=== PATIENT | male | born 1975 | race Caucasian/White ===

== ENCOUNTER 2016-09-10 04:17 | Emergency (ER) | payer MEDICAID ==
[2016-09-10 04:18] VITALS: BMI 29.8
[2016-09-10 04:29] VITALS: BP 128/92; PULSE 98; RESP 18; TEMP 98; O2SAT 97
--- NOTE | 2016-09-10 04:50 | C.PDOC ---
History Of Present Illness 40 y/o healthy male c/o constant cough with whitish sputum x 3 days, temp to 103 yesterday, c/o bilateral ear pain, headache, nasal congestion,sore throat, upper back pain and myalgias x 3 days. no sick contacts. no n/v/d. no flu vaccine this year. Time Seen by Provider: 09/10/16 04:33 Chief Complaint (Nursing): Cough, Cold, Congestion History Per: Patient, Family History/Exam Limitations: no limitations Onset/Duration Of Symptoms: Days (3) Current Symptoms Are (Timing): Better Location Of Pain: Ear(s), Throat, Sinus/es, Diffuse Myalgias, Headache Sick Contacts (Context): None Associated Symptoms: Fever, Chills, Sore Throat, Cough, Sputum, Myalgias, Nasal Congestion. denies: Vomiting, Diarrhea, Other Ear Symptoms: Bilateral: Ear Pain, Ear Fullness Severity: Mild Recent travel outside of the [place]: No Additional History Per: Patient Past Medical History Reviewed: Historical Data, Nursing Documentation, Vital Signs Vital Signs: Last Vital Signs Temp 98.0 F 09/10/16 04:26 Pulse 98 H 09/10/16 04:26 Resp 18 09/10/16 04:26 BP 128/92 H 09/10/16 04:26 Pulse Ox 97 09/10/16 04:57 - Medical History PMH: No Chronic Diseases Surgical History: No Surg Hx Other Surgeries: abscess - [facility] Procedures ATTACH PEDICLE GRAFT NEC (08/30/13) INCIS PERIANAL ABSCESS (01/05/13) LEG VARICOS V LIGA-STRIP (08/30/13) OTHER SKIN & SUBQ I D (09/20/13) PERIRECTAL INCISION (01/05/13) Family History: States: Unknown Family Hx - Social History Hx Tobacco Use: Yes (weekends only) Hx Alcohol Use: Yes (weekends only) Hx Substance Use: No - Immunization History Hx Tetanus Toxoid Vaccination: No Hx Influenza Vaccination: No Hx Pneumococcal Vaccination: No Review Of Systems Constitutional: Positive for: Fever, Chills, Weakness, Malaise Eyes: Negative for: Pain, Vision Change ENT: Positive for: Ear Pain, Nose Discharge, Nose Congestion, Throat Pain. Negative for: Ear Discharge, Nose Pain, Mouth Pain Respiratory: Positive for: Cough, Pleuritic Pain, Sputum Gastrointestinal: Negative for: Nausea, Vomiting, Abdominal Pain, Diarrhea Skin: Negative for: Rash Physical Exam - Physical Exam Appears: Non-toxic, No Acute Distress, Other (uncomfortable) Skin: Normal Color, Warm, Dry Head: Atraumatic Eye(s): bilateral: Normal Inspection Ear(s): Bilateral: Normal Nose: Discharge Oral Mucosa: Moist Throat: Erythema (mild), No Exudate, No Drooling, No Other Neck: Normal ROM, No Midline Cervical Tenderness, No Step Off Deformity Lymphatic: No Adenopathy Chest: Symmetrical, No Deformity, No Tenderness Cardiovascular: Rhythm Regular, No Murmur Respiratory: Normal Breath Sounds, No Accessory Muscle Use, No Rales, No Rhonchi , No Wheezing Gastrointestinal/Abdominal: Soft, No Tenderness, No Distention, No Guarding, No Rebound Extremity: No Pedal Edema, No Calf Tenderness, No Swelling Neurological/Psych: Oriented x3, Normal Speech, Normal Motor, Normal Sensation ED Course And Treatment O2 Sat by Pulse Oximetry: 97 Medical Decision Making Medical Decision Makin40 y/o male with infulenza like symptomd.s supportive care. Disposition Counseled Patient/Family Regarding: Diagnosis, Need For Followup - Disposition Disposition: HOME/ ROUTINE Disposition Time: 05:06 Condition: STABLE Additional Instructions: Tske Tylenol 650 mg every 4 hours for fever or pain. take ibuprofen 600 mg by mouth every 6 hours for pain/fever. Stay well hydrated. Gargel with warm salty water several times a day for throat pain. Follow up with your doctor on Wednesday. Instructions: Influenza (ED) Forms: Gen Discharge Inst Urdu, Work Excuse Print Language: SLOVENIAN - Clinical Impression Clinical Impression: Influenza-like illness
== END 2016-09-10 05:16 | disposition home or self-care (01) ==
LOC: C.ER 04:17
DX: J11.1 Influenza due to unidentified influenza virus with other respiratory manifestations (principal)